=== PATIENT | male | born 1970 | race Hispanic/Latino ===

== ENCOUNTER 2018-02-17 19:46 | Emergency (ER) | payer BC ==
[~2018-02-17] VITALS: Ht 170.2 cm; Wt 90.9 kg
[2018-02-17 20:52] LABS: HEMATOCRIT 45.9 % (38.0-50.0); HEMOGLOBIN 16.8 G/DL (12.5-16.6); MCH 34.6 PG (29.0-34.0); MCHC 36.6 G/DL (30.0-36.0); MCV 94.4 FL (86-99); PLATELET COUNT 223 K/uL (156-360); RBC DIS.WIDTH-CV 12.1 % (11.8-14.6); RBC DIS.WIDTH-SD 42.4 % (39-53); RED BLOOD COUNT 4.86 M/uL (4.00-5.50); WHITE BLOOD COUNT 5.9 K/uL (4.1-10.2)
[2018-02-17 21:11] LABS: ALBUMIN 4.3 G/DL (3.2-4.8); CHLORIDE 106 MEQ/L (99-109); POTASSIUM 3.9 MEQ/L (3.7-5.4); SODIUM 138 MEQ/L (136-147); TOTAL BILIRUBIN 0.4 MG/DL (0.0-1.0)
[2018-02-17 21:17] LABS: ALKALINE PHOSPHATASE 123 IU/L (3-129); ALT (GPT) 74 IU/L (3-49); AST (GOT) 45 IU/L (2-34); CREATININE 0.8 MG/DL (0.6-1.3); GFR ESTIMATE (CALCULATED) > 59 mL/min/ (58.99-99999); GLUCOSE 132 mg/dL (70-99); TOTAL PROTEIN 7.7 G/DL (6.4-8.3); UREA NITROGEN (BUN) 10 mg/dL (9-23)
[2018-02-17 21:20] LABS: APPEARANCE CLEAR ((CLEAR)); BILIRUBIN NEGATIVE; BLOOD NEGATIVE; COLOR COLORLESS ((YELLOW)); GLUCOSE (STRIP) NEGATIVE; KETONES NEGATIVE; LEUKOCYTES NEGATIVE; NITRITE NEGATIVE; PROTEIN (STRIP) NEGATIVE; SPECIFIC GRAVITY 1.002 (1.000-1.030); UCUL ADDED? NO; UROBILINOGEN 0.2 MG/DL (0.2-1.0)
[2018-02-17] MEDS ORDERED: PERCOCET 5/31 TABLET PO (22:52)
[2018-02-17] MEDS ORDERED: LIORESAL10 MG PO (22:52)
[2018-02-17] MEDS ORDERED: NAPROSYN-EC 37375 MG PO (22:52)
[2018-02-17 23:08] LABS: LIPASE 36 U/L (1.0-51.0)
[2018-02-17 23:51] VITALS: BP 120/70
== END 2018-02-17 23:52 | disposition home or self-care (01) ==
LOC: EME 19:46
DX: M54.9 Dorsalgia, unspecified (principal)
CPT/HCPCS: 74177; 80053; 81003; 83690; 85027; 99281; 99285; J2270; J7040